=== PATIENT | male | born 1955 | race Two or more races ===

== ENCOUNTER → 2019-04-28 | Day surgery (SDC) | payer BC ==
[~2019-04-28] VITALS: Ht 172.7 cm; Wt 112.5 kg
[~2019-04-28] MED LIST: BUPIVACAINE 0.25% INJ 50ML VIAL ONE; CARV3.1240 PO; FEXO-42 PO; GLYCOPYRROLATE 0.2 MG/ML 1ML VIAL ONE; HYDR-4833 PO; HYDROmorphone HCL 2 MG/ML VL ONE; LISI10TA6 PO; METOCLOPRAMIDE HCL 5MG/ml INJ 2ml VIAL IV ONE; METOCLOPRAMIDE HCL 5MG/ml INJ 2ml VIAL IV PRN; METOCLOPRAMIDE HCL 5MG/ml INJ 2ml VIAL ONE; MIDAZOLAM HCL 1MG/1ML-2 ML VIAL ONE; MORPHINE SULFATE 4 MG/ML SYR/VIAL IV PRN; NEOSTIGMINE 1 MG/ML INJ (10mg/10ML VIAL) ONE; OMEP20TA PO; ONDANSETRON HCL 4 MG/2 ML VIAL ONE; PROPOFOL 10 MG/ML 20 ML IV ONE; ROCURONIUM 10MG/ML 10ML VIAL IV ONE; SODIUM CHLORIDE LOCK 30 ML ONE; SUCCINYLCHOLINE CHLORIDE 20 MG/ML 10ML VIAL IV ONE; ceFAZolin 1GM VL ONE; ceFAZolin 1GM/50ML 50 ML IV ONE; fentaNYL CITRATE 100 MCG/2 ML VL IV PRN; fentaNYL CITRATE 100 MCG/2 ML VL ONE; fentaNYL CITRATE 5 ML ONE
[2019-04-28] MEDS: HYDROmorphone HCL 2 MG/ML VL IV PRN ×2 (13:10→13:21)
[2019-04-28 14:30] VITALS: BP 114/79
== END | disposition home or self-care (01) ==
LOC: SUR 07:00
PROVIDERS: ATTEND Surgery
DX: K40.20 Bilateral inguinal hernia, without obstruction or gangrene, not specified as recurrent (principal); I10 Essential (primary) hypertension; K21.9 Gastro-esophageal reflux disease without esophagitis; E78.00 Pure hypercholesterolemia, unspecified; E66.9 Obesity, unspecified; Z79.82 Long term (current) use of aspirin; Z79.899 Other long term (current) drug therapy; Z98.890 Other specified postprocedural states; Z68.37 Body mass index [BMI] 37.0-37.9, adult
CPT/HCPCS: 49650; C1713; C1781; J0330; J0690; J1170; J2250; J2405; J2704; J2765; J3010; J3490; J7030; S2900